=== PATIENT | male | born 1935 | race Caucasian/White ===

== ENCOUNTER → 2017-01-06 | Day surgery (SDC) | payer MEDICARE, BC ==
[~2017-01-06] MED LIST: Acetaminophen/HYDROcodone 325-5 MG Tab PO PRN; Bacitracin/Neomycin/Polymyxin B Oint 0.9 GM U/D Packet ONE; Lidocaine 2% with EPINEPHrine 1:100,000 20 ML MDV INJECT ONE; Sodium Bicarbonate 8.4% 50 MEQ/50 ML SDV ONE
[2017-01-06 15:15] VITALS: BP 161/89
--- NOTE | 2017-01-07 07:45 | OR ---
DATE OF OPERATION: 01/06/2017 PREOPERATIVE DIAGNOSIS: INCOMPLETE EXCISION OF LEFT CHEEK BASAL CELL CARCINOMA. POSTOPERATIVE DIAGNOSIS: INCOMPLETE EXCISION OF LEFT CHEEK BASAL CELL CARCINOMA. SURGEON: Kvng Lomas MD PROCEDURE: WIDE EXCISION OF BASAL CELL CARCINOMA LEFT CHEEK. DESCRIPTION OF PROCEDURE: This gentleman has had a biopsy proven basal cell carcinoma which is incompletely excised. He was taken to the operating suite and the left cheek area was noted. The site itself of the previous biopsy along with surrounding tissue measured 2.1 cm in total diameter. The lesion itself is somewhat raised, irregular, and a degree of hyperemia. The peripheral margin was advanced approximately 2 mm. The excision site now measures approximately 3.1 cm in total length. Xylocaine 2% with epinephrine was used for infiltration anesthesia. After the area had been totally prepped and draped and with adequate anesthesia an ellipse was made along the lines of cleavage and brought down the subcutaneous tissues. I elevated the specimen and totally excised it. I marked the specimen on the left lateral margin. Undermining of upper and lower flaps was accomplished following this, the subcutaneous tissues were carefully closed with 5-0 Vicryl. The skin was then closed with 5-0 nylon suture. A dressing was applied. The patient had no complications. Recommendation at this point will be for him to begin his Coumadin tomorrow with 5 mg both for tomorrow and the next followed by a recheck INR the third day. The standard precautions are noted for discharge and recheck will be made with Dr. Garcia to remove the sutures. I will see him when I return to the area in approximately one month. JAMILAH/CARA /[id number] ALAYNA
== END | disposition home or self-care (01) ==
LOC: CC.SDS 11:37
DX: C44.319 Basal cell carcinoma of skin of other parts of face (principal); Z88.8 Allergy status to other drugs, medicaments and biological substances; Z79.01 Long term (current) use of anticoagulants; Z79.899 Other long term (current) drug therapy
CPT/HCPCS: 88305

== ENCOUNTER → 2017-02-10 | Day surgery (SDC) | payer MEDICARE, BC ==
[~2017-02-10] MED LIST changes: -Acetaminophen/HYDROcodone 325-5 MG Tab PO PRN; +Lidocaine 2% 20 ML MDV INJECT ONE; -Lidocaine 2% with EPINEPHrine 1:100,000 20 ML MDV INJECT ONE; +Lidocaine 2% with EPINEPHrine 1:100,000 20 ML MDV ONE
[2017-02-10 14:38] VITALS: BP 131/88
--- NOTE | 2017-02-11 07:58 | OR ---
DATE OF OPERATION: 02/10/2017 PREOPERATIVE DIAGNOSIS: INCOMPLETE EXCISION OF BASAL CELL CARCINOMA IN LEFT CHEEK. POSTOPERATIVE DIAGNOSIS: INCOMPLETE EXCISION OF BASAL CELL CARCINOMA IN LEFT CHEEK. SURGEON: Kvng Lomas MD PROCEDURE: RE-EXCISION OF LESION LEFT CHEEK. DESCRIPTION OF PROCEDURE: The patient was taken to the Operating Suite, and the area over the left cheek measures approximately 4.5 cm in total length. This was a scar from his previous excision. There was a degree of nodularity in the lower portion of the scar and the caudal portion of the scar. However, nothing that suggests an actual basal cell carcinoma. The scar is well healed. There are a couple of sutures that have been retained within the scar itself. The area in question involved both medial and lateral margins, and at this particular point, due to the inconspicuous nature of the area, an excised lesion with approximately 5-mm margins on either side of the scar. This included a re- excision of the upper and lower portions. At this point, the base was gently cauterized, following which the subcutaneous tissues were undermined and then closed with 5-0 Vicryl suture. The skin was then closed with interrupted 6-0 Prolene suture. A dressing was applied to suture nova of the cephalic margin. The length of the excision is now at 5.1 cm in total length. The small area of nodularity involving the caudal portion was a bit more widely excised to be on the safe side of a complete resection. After dressing the wound, the patient will be discharged, and then followed as an outpatient. I will see him over the next two days for a suture removal. ANESTHESIA: Xylocaine 2% with epinephrine buffered solution was used for infiltration. Hemostasis and anesthesia with approximately 4.5 mL was used. JAMILAH/CARA /[id number]
== END ==
LOC: CC.SDS 11:11
DX: C44.319 Basal cell carcinoma of skin of other parts of face (principal); Z79.01 Long term (current) use of anticoagulants; Z88.6 Allergy status to analgesic agent; Z79.899 Other long term (current) drug therapy
CPT/HCPCS: 36415; 85610; 88305

== ENCOUNTER 2018-06-02 18:11 | Emergency (ER) | payer MEDICARE, BC ==
[2018-06-02] MEDS ORDERED: fentaNYL 100 MCG/2 ML SDV IVPUSH PRN (18:50)
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
[2018-06-02 19:12] LABS: CHLORIDE,CL 107 mEq/L (98-106); SODIUM,NA 141 mEq/L (136-145)
[2018-06-02] MEDS ORDERED: Acetaminophen/HYDROcodone 325-5 MG Tab PO ONE (19:39)
[2018-06-02] MEDS ORDERED: oxyCODONE 5 MG Tab PO ONE (19:42)
[2018-06-02 19:53] VITALS: BP 198/100
== END 2018-06-02 20:10 ==
LOC: CC.ED 18:11
DX: S72.141A Displaced intertrochanteric fracture of right femur, initial encounter for closed fracture (principal); I10 Essential (primary) hypertension; Z88.8 Allergy status to other drugs, medicaments and biological substances; Z87.891 Personal history of nicotine dependence; W11.XXXA Fall on and from ladder, initial encounter
CPT/HCPCS: 36415; 71045; 73502; 80048; 85025; 85610; 99285; A9270; 99284

== ENCOUNTER 2019-06-01 01:40 | Inpatient (IN) | payer MEDICARE, BC ==
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
[2019-06-01] MEDS ORDERED: Sodium Chloride 0.9% 500 ML IV SCH (04:02)
[2019-06-01] MEDS ORDERED: Docusate Sodium 100 MG Cap PO PRN (04:02)
[2019-06-01] MEDS ORDERED: cefTRIAXone 1 GM Vial IVPUSH ONE (04:02)
[2019-06-01] MEDS ORDERED: Metoprolol Tartrate 25 MG Tab PO ONE (04:21)
[2019-06-01] MEDS: Sodium Chloride 0.9% 1,000 ML IV SCH ×3 (06:27→22:07)
[2019-06-01] MEDS: Amiodarone 200 MG Tab PO SCH (08:05)
[2019-06-01] MEDS: Metoprolol Succinate 100 MG Tab.ER PO SCH (08:05)
[2019-06-02] MEDS: Sodium Chloride 0.9% 1,000 ML IV SCH (06:12)
[2019-06-02] MEDS: Amiodarone 200 MG Tab PO SCH (07:46)
[2019-06-02] MEDS: Metoprolol Succinate 100 MG Tab.ER PO SCH (07:46)
[2019-06-02] MEDS ORDERED: Haloperidol Lactate 5 MG/ML SDV IM ONE (12:05)
[2019-06-02] MEDS ORDERED: Haloperidol Lactate 5 MG/ML SDV ONE ×2 (12:17→12:19)
[2019-06-02] MEDS: Warfarin 2 MG Tab PO SCH (12:19)
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
[2019-06-02] MEDS: risperiDONE 0.25 MG Tab PO SCH (19:38)
[2019-06-03 07:21] LABS: CHLORIDE,CL 108 mEq/L (98-106); SODIUM,NA 144 mEq/L (136-145)
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
[2019-06-03] MEDS: Metoprolol Succinate 100 MG Tab.ER PO SCH (09:31)
[2019-06-03] MEDS: Amiodarone 200 MG Tab PO SCH (09:31)
[2019-06-03] MEDS: risperiDONE 0.25 MG Tab PO SCH ×2 (09:31→19:32)
[2019-06-04] MEDS: Haloperidol Lactate 5 MG/ML SDV IM PRN ×2 (01:18→11:10)
[2019-06-04 07:42] LABS: CHLORIDE,CL 105 mEq/L (98-106); SODIUM,NA 142 mEq/L (136-145)
[2019-06-04] MEDS: Metoprolol Succinate 100 MG Tab.ER PO SCH (08:23)
[2019-06-04] MEDS: risperiDONE 0.25 MG Tab PO SCH (08:23)
[2019-06-04] MEDS: Amiodarone 200 MG Tab PO SCH (08:24)
[2019-06-04] MEDS: Warfarin 2 MG Tab PO SCH (12:50)
--- NOTE | 2019-06-04 16:44 | PCM.DCSUM1 ---
Discharge Summary - Hospital Course HPI Initial Comments: This patient is an 84 year old male that was admitted due to confusion. He was found in a vehicle on the side of the road. The patient has been talking how he is here to . He constantly has conversations about he is going to be cremated and go to the cemetery where they bury people. The patient does know his name and location of [place]. He knows the year. Most conversation with patient, he will answer my question, then immediately ramble about cemeteries and . He reports he came here to be euthanized. Diagnosis: Stroke: No - Discharge Data Discharge Date: 06/04/19 Discharge Disposition: DC/Tfer W/I Hosp To [facility] Condition: Good - Referral to Home Health Primary Care Physician: Blake Irby MD - Patient Summary/Data Consults: Consultations 06/01/19 04:15 Consult to Case Management/Utilities Estimator And Drafter [CONS] Routine - Patient Instructions Diet: Usual Diet as Tolerated Activity: As Tolerated Driving: Do Not Drive Showering/Bathing: May Shower (with assistance) Notify Provider of: Fever, Nausea and/or Vomiting - Discharge Plan *PRESCRIPTION DRUG MONITORING PROGRAM REVIEWED*: Not Applicable *COPY OF PRESCRIPTION DRUG MONITORING REPORT IN PATIENT BEATRIZ: Not Applicable Home Medications: Home Meds Latanoprost 1 drop EYEBOTH BEDTIME PRN 08/25/14 [History] Metoprolol Succinate [Toprol Xl] 50 mg PO DAILY 08/25/14 [History] Warfarin Sodium 2.5 mg PO DAILY 08/25/14 [History] Cholecalciferol (Vitamin D3) [Vitamin D3] 2,000 unit PO DAILY 02/09/17 [History] Ibuprofen 2 - 3 tab PO Q8HR PRN 02/09/17 [History] Amiodarone [Cordarone] 200 mg PO DAILY 06/01/19 [History] Forms: ED Department Discharge Referrals: Blake Irby MD [Primary Care Provider] - - Discharge Summary/Plan Comment DC Time >30 min.: No Discharge Summary/Plan Comment: The plan is to discharge patient to [facility] today. Patient will need detention placement. Due to patient aggressive behavior, patient was started on Risperidone. - General Info Functional Status: Reports: Pain Controlled, Tolerating Diet, Ambulating (with assistance) - Review of Systems General: Reports: No Symptoms HEENT: Reports: No Symptoms Pulmonary: Reports: No Symptoms Cardiovascular: Reports: No Symptoms Gastrointestinal: Reports: No Symptoms Genitourinary: Reports: No Symptoms Musculoskeletal: Reports: No Symptoms Skin: Reports: No Symptoms Neurological: Reports: Confusion (intermittent). Denies: Headache, Numbness, Seizure, Tingling, Tremors, Weakness, Change in Speech Psychiatric: Reports: Confusion, Agitation, Other (periods of delirium) - Patient Data Vitals - Most Recent: Last Vital Signs Temp 98.3 F 06/04/19 00:00 Pulse 91 06/04/19 08:23 Resp 20 06/04/19 00:00 BP 180/78 H 06/04/19 08:23 Pulse Ox 99 06/04/19 00:00 Weight - Most Recent: 165 lb 9.6 oz Lab Results - Last 24 hrs: Laboratory Results - last 24 hr 06/04/19 06/04/19 Range/Units 07:00 07:00 WBC 7.9 (5.0-10.0) 10^3/uL RBC 4.59 (4.50-6.00) 10^6/uL Hgb 14.4 (14.0-18.0) g/dL Hct 42.3 (40.0-54.0) % MCV 92.2 (82.0-94.0) fL MCH 31.4 (27.0-32.0) pg MCHC 34.0 (33.0-38.0) g/dL RDW Coeff of Lauren 13.8 (11.0-15.0) % Plt Count 151 (150-400) 10^3/uL Neut % (Auto) 67.0 (35-85) % Lymph % (Auto) 14.2 (10-55) % [place] % (Auto) 17.4 H (0-16) % Eos % (Auto) 1.3 (0-5) % Baso % (Auto) 0.1 (0-3) % Neut # (Auto) 5.29 (1.80-7.00) 10^3/uL Lymph # (Auto) 1.12 (1.00-4.80) 10^3/uL [place] # (Auto) 1.37 H (0.00-0.80) 10^3/uL Eos # (Auto) 0.10 (0.00-0.45) 10^3/uL Baso # (Auto) 0.01 10^3/uL Sodium 142 (136-145) mEq/L Potassium 3.3 L (3.5-5.0) mEq/L Chloride 105 (98-106) mEq/L Carbon Dioxide 27 (21-32) mmol/L BUN 13 (7-18) mg/dL Creatinine 1.0 (0.7-1.3) mg/dL Est Cr Clr Drug Dosing 54.01 mL/min Estimated GFR (MDRD) > 60 (>=60) mL/min Glucose 99 (75-99) mg/dL Calcium 9.0 (8.4-10.1) mg/dL C-Reactive Protein 10.2 H (0.2-0.8) mg/dL Med Orders - Current: Current Medications Amiodarone HCl (Cordarone) 200 mg PO DAILY [facility] Last Admin: 06/04/19 08:24 Dose: 200 mg Docusate Sodium (Colace) 100 mg PO BID PRN PRN Reason: Constipation Haloperidol Lactate (Haldol) 5 mg IM Q6H PRN PRN Reason: Anxiety Last Admin: 06/04/19 11:10 Dose: 5 mg Sodium Chloride (Normal Saline) 500 mls @ 999 mls/hr IV .BOLUS [facility] Last Admin: 06/01/19 04:21 Dose: 999 mls/hr Metoprolol Succinate (Toprol Xl) 50 mg PO DAILY [facility] Last Admin: 06/04/19 08:23 Dose: 50 mg Risperidone (Risperidal) 0.5 mg PO BID [facility] Last Admin: 06/04/19 08:23 Dose: 0.5 mg Warfarin Sodium (Coumadin) 1 mg PO MoWeFr@1200 [facility] Last Admin: 06/03/19 12:06 Dose: 1 mg Warfarin Sodium (Coumadin) 2 mg PO SuTuThSa@1200 [facility] Last Admin: 06/04/19 12:50 Dose: 2 mg Discontinued Medications Ceftriaxone Sodium (Rocephin) 1 gm IVPUSH ONETIME ONE Stop: 06/01/19 04:03 Last Admin: 06/01/19 04:21 Dose: 1 gm Haloperidol Lactate (Haldol) 5 mg IM ONETIME ONE Stop: 06/02/19 12:06 Last Admin: 06/02/19 12:19 Dose: 5 mg Haloperidol Lactate (Haldol) Confirm Administered Dose 5 mg .ROUTE .STK-MED ONE Stop: 06/02/19 12:18 Last Admin: 06/02/19 12:19 Dose: Not Given Haloperidol Lactate (Haldol) Confirm Administered Dose 5 mg .ROUTE .STK-MED ONE Stop: 06/02/19 12:20 Last Admin: 06/02/19 12:20 Dose: Not Given Sodium Chloride (Normal Saline) 1,000 mls @ 30 mls/hr IV ASDIRECTED [facility] Last Infusion: 06/02/19 19:17 Dose: Infused Metoprolol Tartrate (Lopressor) 25 mg PO ONETIME ONE Stop: 06/01/19 04:22 Last Admin: 06/01/19 04:24 Dose: 25 mg - Exam General: Reports: Alert, Oriented, Cooperative (during my examination) HEENT: Reports: Pupils Equal, Pupils Reactive, Mucous Membr. Moist/[place] Neck: Reports: Supple Lungs: Reports: Clear to Auscultation, Normal Respiratory Effort Cardiovascular: Reports: Regular Rate, Regular Rhythm GI/Abdominal Exam: Normal Bowel Sounds, Soft, Non-Tender, No Organomegaly (Male) Exam: Deferred Rectal (Males) Exam: Deferred Back Exam: Reports: Normal Inspection, Full Range of Motion Extremities: Normal Inspection, Normal Range of Motion, Non-Tender, No Pedal Edema, Normal Capillary Refill Skin: Reports: Warm, Dry, Intact Neurological: Reports: No New Focal Deficit, Normal Speech, Strength Equal Bilateral, Sensation Intact Psy/Mental Status: Reports: Alert, Labile Mood, Agitated
[2019-06-04 17:43] VITALS: BP 105/62; PULSE 84
== END 2019-06-04 18:40 | disposition swing bed (61) | DRG 684 ==
LOC: CC.ED 01:40 → CC.MS 03:20 → UNDOADMIN 03:49
PROVIDERS: ADMIT Physician Assistant Medical; ATTEND Family Medicine
DX: N17.9 Acute kidney failure, unspecified (principal); E86.0 Dehydration; R41.82 Altered mental status, unspecified; I48.91 Unspecified atrial fibrillation; I10 Essential (primary) hypertension; Z96.649 Presence of unspecified artificial hip joint; Z88.8 Allergy status to other drugs, medicaments and biological substances; Z79.01 Long term (current) use of anticoagulants; Z79.899 Other long term (current) drug therapy; Z86.73 Personal history of transient ischemic attack (TIA), and cerebral infarction without residual deficits; Z87.891 Personal history of nicotine dependence
CPT/HCPCS: 36415; 70450; 70551; 71046; 80048; 80053; 81001; 82550; 84484; 85025; 85610; 86140; 93005; 99285-25; A9270-GY; J0696; J1630; J7030

== ENCOUNTER 2019-06-04 19:11 | Inpatient (IN) | payer MEDICARE, BC ==
[2019-06-04 20:26] VITALS: BP 158/85; PULSE 88
[2019-06-04] MEDS ORDERED: Haloperidol Lactate 5 MG/ML SDV IM PRN (21:05)
[2019-06-04] MEDS ORDERED: Sodium Chloride 0.9% 500 ML IV SCH (21:05)
[2019-06-04] MEDS ORDERED: Docusate Sodium 100 MG Cap PO PRN (21:05)
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
[2019-06-04] MEDS ORDERED: Sodium Chloride 0.9% 1,000 ML IV SCH (22:00)
[2019-06-05] MEDS ORDERED: Amiodarone 200 MG Tab PO SCH (08:00)
[2019-06-05] MEDS ORDERED: Metoprolol Succinate 100 MG Tab.ER PO SCH (08:00)
[2019-06-05] MEDS ORDERED: risperiDONE 0.25 MG Tab PO SCH (08:00)
[2019-06-05] MEDS ORDERED: Warfarin 2 MG Tab PO SCH (12:00)
== END 2019-06-04 22:40 | DRG 880 ==
LOC: CC.MS 19:11 → UNDOADMIN 19:11 → CC.MS 21:05 → UNDODISIN 22:40
PROVIDERS: ADMIT Nurse Practitioner; ATTEND Family Medicine
DX: R45.6 Violent behavior (principal); Z79.01 Long term (current) use of anticoagulants
CPT/HCPCS: J1630

== ENCOUNTER 2019-11-15 12:30 | Emergency (ER) | payer MEDICARE, BC ==
[2019-11-15 13:02] VITALS: BP 158/97; PULSE 68
--- NOTE | 2019-11-15 14:03 | EDM.PDOC ---
ED HPI GENERAL MEDICAL PROBLEM - General Chief Complaint: Lower Extremity Injury/Pain Stated Complaint: fall, L) hip pain Time Seen by Provider: 11/15/19 12:56 Source of Information: Reports: Patient, [facility] Records History Limitations: Reports: No Limitations - History of Present Illness INITIAL COMMENTS - FREE TEXT/NARRATIVE: Patient presents to ER today with complaints of left hip pain. States was reaching for his walker and fell, landing on his left hip. Staff noted rotation of his left leg and was complaining of severe pain. Patient or staff deny any head trauma. No chest discomfort, shortness of breath, nausea or pain elsewhere. Onset: Today, Sudden Duration: Minutes: Location: Reports: Lower Extremity, Left Quality: Reports: Sharp Severity: Severe Improves with: Reports: Rest Worsens with: Reports: Movement Context: Reports: Trauma Associated Symptoms: Reports: No Other Symptoms Left Hip Pain Score (Numeric/FACES): 6 - Related Data Allergies Allergy/AdvReac Type Severity Reaction Status Date / Time acetaminophen [From Tylenol] Allergy Cannot Verified 06/01/19 02:00 Remember aspirin Allergy Cannot Verified 11/15/19 12:43 [From Excedrin Migraine] Remember caffeine Allergy Cannot Verified 11/15/19 12:43 [From Excedrin Migraine] Remember lorazepam Allergy Cannot Verified 06/01/19 02:00 Remember Home Meds: Home Meds Latanoprost 1 drop EYEBOTH BEDTIME PRN 08/25/14 [History] Metoprolol Succinate [Toprol Xl] 37.5 mg PO DAILY 08/25/14 [History] Warfarin Sodium 2 mg PO MOTH 08/25/14 [History] Ibuprofen 2 - 3 tab PO Q8HR PRN 02/09/17 [History] Amiodarone [Cordarone] 200 mg PO DAILY 06/01/19 [History] Acetaminophen [Tylenol] 650 mg PO BID 11/15/19 [History] FLUoxetine HCl [Prozac] 60 mg PO DAILY 11/15/19 [History] Loratadine 10 mg PO DAILY 11/15/19 [History] OLANZapine [Zyprexa] 5 mg PO BID 11/15/19 [History] Warfarin Sodium [Coumadin] 1 mg PO SUTUWEFRSA 11/15/19 [History] polyethylene glycoL 3350 [MiraLAX] 17 gm PO DAILY 11/15/19 [History] Past Medical History HEENT History: Reports: Glaucoma Cardiovascular History: Reports: Afib, Hypertension Respiratory History: Reports: Other (See Below) Other Respiratory History: history of histoplasmosis Musculoskeletal History: Reports: Fracture, Other (See Below) Other Musculoskeletal History: 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 was supposed to see Dr. 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 Psychiatric History: Reports: Anxiety, Depression Oncologic (Cancer) History: Reports: Basal Cell Carcinoma - Past Surgical History Musculoskeletal Surgical History: Reports: Hip Replacement Social & Family History - Tobacco Use Smoking Status *Q: Former Smoker Used Tobacco, but Quit: Yes Month/Year Tobacco Last Used: 30 - Caffeine Use Caffeine Use: Reports: None - Recreational Drug Use Recreational Drug Use: No - Living Situation & Occupation Living situation: Reports: Single, Alone Occupation: Retired Review of Systems - Review of Systems Review Of Systems: See Below Constitutional: Reports: Weakness. Denies: Chills, Diaphoresis, Fever Eyes: Reports: Other (patient reports chronic poor vision) Ears: Denies: Dizziness Nose: Reports: No Symptoms Mouth/Throat: Reports: No Symptoms Respiratory: Denies: Shortness of Breath Cardiovascular: Denies: Chest Pain, Syncope GI/Abdominal: Denies: Abdominal Pain, Nausea Musculoskeletal: Reports: Leg Pain, Joint Pain Skin: Reports: Other (swelling ) Neurological: Reports: Weakness ED EXAM, GENERAL - Physical Exam Exam: See Below Exam Limited By: No Limitations General Appearance: Alert, WD/WN, Mild Distress Eye Exam: Bilateral Eye: EOMI, PERRL Ears: Normal External Exam, Normal TMs Nose: Normal Inspection, Normal Mucosa, No Blood Throat/Mouth: Normal Inspection, Normal Oropharynx Head: Normocephalic Neck: Normal Inspection, Supple, Non-Tender, Full Range of Motion Respiratory/Chest: Lungs Clear Cardiovascular: Irregularly Irregular GI/Abdominal: Normal Bowel Sounds, Soft, Non-Tender Extremities: Joint Swelling, Limited Range of Motion, Other (left leg externally rotated) Neurological: Alert, Oriented (oriented to person, place and time and events) Skin Exam: Warm, Dry Course - Vital Signs Last Recorded V/S: Last Vital Signs Temp 97.3 F 11/15/19 12:30 Pulse 68 11/15/19 12:30 Resp 16 11/15/19 12:30 BP 158/97 H 11/15/19 12:30 Pulse Ox 97 11/15/19 12:30 - Orders/Labs/Meds Orders: Active Orders 24 hr Category Date Time Status Hip Min 2V or 3V w Pelvis Lt [CR] Stat Exams 11/15/19 12:48 Taken Labs: Laboratory Tests 11/15/19 11/15/19 11/15/19 Range/Units 12:40 12:40 12:40 WBC 8.2 (5.0-10.0) 10^3/uL RBC 4.50 (4.50-6.00) 10^6/uL Hgb 13.8 L (14.0-18.0) g/dL Hct 41.2 (40.0-54.0) % MCV 91.6 (82.0-94.0) fL MCH 30.7 (27.0-32.0) pg MCHC 33.5 (33.0-38.0) g/dL RDW Coeff of Lauren 14.1 (11.0-15.0) % Plt Count 150 (150-400) 10^3/uL Neut % (Auto) 68.7 (35-85) % Lymph % (Auto) 15.3 (10-55) % Lawrence % (Auto) 14.1 (0-16) % Eos % (Auto) 1.3 (0-5) % Baso % (Auto) 0.6 (0-3) % Neut # (Auto) 5.60 (1.80-7.00) 10^3/uL Lymph # (Auto) 1.25 (1.00-4.80) 10^3/uL Lawrence # (Auto) 1.15 H (0.00-0.80) 10^3/uL Eos # (Auto) 0.11 (0.00-0.45) 10^3/uL Baso # (Auto) 0.05 10^3/uL PT 36.5 H (9.7-12.3) SEC INR 3.66 H (0.92-1.18) Sodium 139 (136-145) mEq/L Potassium 3.9 (3.5-5.0) mEq/L Chloride 104 (98-106) mEq/L Carbon Dioxide 27 (21-32) mmol/L BUN 16 (7-18) mg/dL Creatinine 1.2 (0.7-1.3) mg/dL Est Cr Clr Drug Dosing 43.54 mL/min Estimated GFR (MDRD) 58 L (>=60) mL/min Glucose 110 H D (75-99) mg/dL Calcium 8.6 (8.4-10.1) mg/dL - Re-Assessments/Exams Free Text/Narrative Re-Assessment/Exam: 11/15/19 1315- patient does have obvious fracture of left hip. Discussed with patient. He is quite adamant about not fixing this. States "have been through this in the past and never want to do that again". Does have history of dementia, however, is lucid at this time. Oriented x3. Did discuss then with Dr. Irby. Feels POA needs to make this decision for patient. 1325-Contacted MIKE Dozier, about decision. He did speak with Dr. irby and patient as well again with myself and wants to honor patient's decision. Relates patient has voiced his concerns with previous surgery several times to him in the past and does not want to put him through it if patient is against it. Will start oxycodone for pain relief, no weight bearing and see how he does. Patient is aware he will have pain regardless of surgery or not, will not be able to walk. He agrees with that. If situation changes, does not get adequate pain control or POA changes decision, can readdress tomorrow if needed. 1340- Discussed with Augustine Burton at [facility]. Aware of patient's decision. States was voicing same to them prior to ambulance arrival there. Will have patient hold Coumadin today and tomorrow. Recheck INR on and change dose as needed. Departure - Departure Time of Disposition: 13:47 Disposition: Home, Self-Care 01 Condition: Fair Clinical Impression: Fracture of neck of femur, hip - Discharge Information *PRESCRIPTION DRUG MONITORING PROGRAM REVIEWED*: No *COPY OF PRESCRIPTION DRUG MONITORING REPORT IN PATIENT BEATRIZ: No Referrals: Blake Irby MD [Primary Care Provider] - Forms: ED Department Discharge Additional Instructions: 1. Bedrest/chair as tolerated~ no weight bearing for 6-8 weeks 2. Hold Coumadin today, tomorrow 3. Oxycodone 5 mg IR every 4 hours as needed for pain 4. Usual meds as directed 5. Follow up in the next 1-2 days if pain not controlled, decision made to proceed with surgery or have concerns. 6. Recheck INR on Sepsis Event Note - Evaluation Sepsis Screening Result: No Definite Risk - Focused Exam Vital Signs: Vital Signs Temp Pulse Resp BP Pulse Ox 11/15/19 12:30 97.3 F 68 16 158/97 H 97 Date Exam was Performed: 11/15/19 Time Exam was Performed: 14:03 - My Orders Last 24 Hours: My Active Orders 11/15/19 12:48 Hip Min 2V or 3V w Pelvis Lt [CR] Stat - Assessment/Plan Last 24 Hours: My Active Orders 11/15/19 12:48 Hip Min 2V or 3V w Pelvis Lt [CR] Stat
[2019-11-15] MEDS ORDERED: fentaNYL 100 MCG/2 ML SDV IM ONE (14:05)
== END 2019-11-15 14:20 | disposition home or self-care (01) ==
LOC: CC.ED 12:30
DX: S72.142A Displaced intertrochanteric fracture of left femur, initial encounter for closed fracture (principal); I10 Essential (primary) hypertension; I48.91 Unspecified atrial fibrillation; F41.9 Anxiety disorder, unspecified; F32.9 Major depressive disorder, single episode, unspecified; Z86.73 Personal history of transient ischemic attack (TIA), and cerebral infarction without residual deficits; Z87.891 Personal history of nicotine dependence; Z88.8 Allergy status to other drugs, medicaments and biological substances; Z79.899 Other long term (current) drug therapy; W19.XXXA Unspecified fall, initial encounter
CPT/HCPCS: 36415; 80048; 85025; 85610; 96374; 99284; 99284-25; J3010